=== PATIENT | female | born 1995 | race Caucasian/White ===

== ENCOUNTER → 2017-07-19 | Outpatient (CLI) | payer OTHER | LOC: COL.RAD 12:10 | DX: Q72.71 Split foot, right lower limb (principal); S93.491A Sprain of other ligament of right ankle, initial encounter; G89.29 Other chronic pain ==

== ENCOUNTER 2018-02-03 00:38 | Emergency (ER) | payer OTHER ==
[~2018-02-03] VITALS: Ht 172.7 cm; Wt 72.7 kg
[2018-02-03] MEDS ORDERED: CELEXA 20MG20 MG/TAB PO (00:43)
[2018-02-03] MEDS ORDERED: PORTIA-28 30 MC1 TAB PO (00:43)
[2018-02-03] MEDS ORDERED: COMBIRESP IH (00:43)
[2018-02-03 00:44] VITALS: BP 126/71; TEMP 98.5
[2018-02-03] MEDS ORDERED: PROZAC 20MG20 MG PO (01:37)
[2018-02-03 02:03] VITALS: PULSE 92
== END 2018-02-03 02:03 | disposition home or self-care (01) ==
LOC: COL.ER 00:38
DX: J45.909 Unspecified asthma, uncomplicated (principal); F41.0 Panic disorder [episodic paroxysmal anxiety]; Z98.890 Other specified postprocedural states

== ENCOUNTER 2019-01-10 14:41 | Emergency (ER) | payer OTHER ==
[~2019-01-10] VITALS: Ht 170.2 cm; Wt 79.5 kg
[~2019-01-10 14:41] MED LIST: CELEXA 20MG20 MG/TAB PO; COMBIRESP IH; PORTIA-28 30 MC1 TAB PO; PROZAC 20MG20 MG PO
[2019-01-10 15:05] VITALS: TEMP 98
[2019-01-10 17:19] LABS: BASO % 0.4 % (0.0-2.0); EOS # 0.1 (0.0-0.7); EOS % 1.3 % (0-4.0); GRAN # 4.4 (1.4-6.5); GRAN % 58.1 % (42.2-75.2); HEMATOCRIT 33.1 % (37.0-47.0); LYMPH % 26.6 % (20.0-51.0); MEAN CELL VOLUME 89 fl (80.0-100.0); MEAN CORPUSCULAR HEMOGLOBIN 30 pg (27.0-31.0); MEAN CORPUSCULAR HGB CONC 33 g/dl (33.0-37.0); MEAN PLATELET VOLUME 11.2 fl (7.4-10.4); MONO % 13.3 % (1.7-9.3); PLATELET COUNT 192 K/mm3 (130-400); RED BLOOD COUNT 3.71 M/mm3 (4.10-5.30)
[2019-01-10 17:25] LABS: ALBUMIN 4.1 gm/dL (3.5-5.0); BILIRUBIN,TOTAL 0.8 mg/dL (0.0-1.0); CALCIUM 9.3 mg/dL (8.4-10.2); CREATININE, serum 0.54 mg/dL (0.52-1.25); POTASSIUM 3.6 mmol/L (3.4-5.0); TOTAL PROTEIN 7.3 gm/dL (6.4-8.2)
[2019-01-10] MEDS ORDERED: CEPHALEXIN500 M1 PO (18:08)
[2019-01-10] MEDS ORDERED: ROXICODONE 55 MG/TAB PO (18:13)
[2019-01-10 18:43] VITALS: BP 107/77; PULSE 101
== END 2019-01-10 18:44 | disposition home or self-care (01) ==
LOC: COL.ER 14:41
PROVIDERS: Physician Assistant
DX: M25.562 Pain in left knee (principal); M25.462 Effusion, left knee; G89.18 Other acute postprocedural pain; J45.909 Unspecified asthma, uncomplicated; Z98.890 Other specified postprocedural states; Z88.1 Allergy status to other antibiotic agents

== ENCOUNTER → 2019-12-04 | Outpatient (CLI) | payer OTHER ==
[~2019-12-04] MED LIST changes: +CEPHALEXIN500 M1 PO; +ROXICODONE 55 MG/TAB PO
== END ==
LOC: COL.RAD 09:40
DX: M79.644 Pain in right finger(s) (principal)
CPT/HCPCS: J3301; Q9967

== ENCOUNTER 2019-12-24 17:54 | Emergency (ER) | payer OTHER ==
[~2019-12-24] VITALS: Ht 170.2 cm; Wt 76.4 kg
[2019-12-24 18:09] VITALS: TEMP 99.4
[2019-12-24 18:28] LABS: COLLECTION METHOD CLEAN CATCH
[2019-12-24 18:38] LABS: MUCOUS Present /lpf; PH 5 (5-8); SQUAMOUS EPITHELIAL 0-2 /hpf; URINE APPEARANCE Clear; URINE BACTERIA None Seen /hpf; URINE BILIRUBIN Negative (NEGATIVE); URINE BLOOD 3+ (NEGATIVE); URINE COLOR Yellow; URINE GLUCOSE Negative (NEGATIVE); URINE KETONE Negative (NEGATIVE); URINE LEUKOCYTE ESTERASE Negative (NEGATIVE); URINE NITRATE Negative (NEGATIVE); URINE PROTEIN(semi-quant) Negative (NEGATIVE); URINE UROBILINOGEN Negative (NEGATIVE)
[2019-12-24 18:39] LABS: BASO % 0.6 % (0.0-2.0); EOS % 0.6 % (0-4.0); GRAN # 5.6 (1.4-6.5); HEMOGLOBIN 11.2 g/dl (12.5-16.0); LYMPH # 1.1 (1.2-3.4); LYMPH % 15.4 % (20.0-51.0); MEAN CELL VOLUME 92 fl (80.0-100.0); MEAN CORPUSCULAR HEMOGLOBIN 29 pg (27.0-31.0); MEAN CORPUSCULAR HGB CONC 32 g/dl (33.0-37.0); MEAN PLATELET VOLUME 11.2 fl (7.4-10.4); MONO # 0.4 (0.1-0.6); MONO % 6.1 % (1.7-9.3); PLATELET COUNT 169 K/mm3 (130-400); RED BLOOD COUNT 3.82 M/mm3 (4.10-5.30); REDCELL DISTRIBUTION WIDTH-CV 12.4 % (11.5-14.5)
[2019-12-24 18:42] LABS: HEMATOCRIT 35.2 % (37.0-47.0)
[2019-12-24 18:53] LABS: ALBUMIN 4.1 gm/dL (3.5-5.0); BILIRUBIN,TOTAL 0.3 mg/dL (0.0-1.0); C-REACTIVE PROTEIN 6.6 mg/dL (0.0-0.9); CALCIUM 8.9 mg/dL (8.4-10.2); CREATININE, serum 0.53 (0.52-1.25); POTASSIUM 3.6 mmol/L (3.4-5.0); TOTAL PROTEIN 7.2 gm/dL (6.4-8.2)
[2019-12-24] MEDS ORDERED: NORCO 325 MG-51 TAB PO (21:04)
[2019-12-24] MEDS ORDERED: ZOFRAN ODT4 MG PO (21:04)
[2019-12-24 21:26] VITALS: BP 126/75; PULSE 87
== END 2019-12-24 21:26 | disposition home or self-care (01) ==
LOC: COL.ER 17:54
PROVIDERS: Nurse Practitioner
DX: K58.9 Irritable bowel syndrome, unspecified (principal); J45.909 Unspecified asthma, uncomplicated; Z88.1 Allergy status to other antibiotic agents; Z88.8 Allergy status to other drugs, medicaments and biological substances
CPT/HCPCS: J1170; J1885; J2405; J7030; Q9967